=== PATIENT | male | born 1950 | race African-American/Black ===

== ENCOUNTER 2023-08-01 20:34 | Emergency (ER) | payer BC, OTHER ==
[2023-08-01 20:40] VITALS: BP 132/84; PULSE 82; RESP 18; TEMP 98.4; BMI 32.5
[2023-08-01 22:01] LABS: BASO % 0.7 % (0-2.0); EOS % 2.3 % (0-4.5); HEMATOCRIT 43.2 % (35.4-49); LYMPH % 34.7 % (8-40); MCH 28.4 pg (25.7-33.7); MCHC 32.3 g/dl (32.0-35.9); MEAN CELL VOLUME 87.8 fl (80-96); MEAN PLT VOLUME 7.7 fl (7.5-11.1); MONO % 6.9 % (3.8-10.2); NEUT % 55.4 % (42.8-82.8); PLATELET COUNT 315 10^3/uL (134-434); RBC 4.92 M/mm3 (4.00-5.60); RDW 12.8 % (11.9-15.9); WHITE BLOOD COUNT 6.4 K/mm3 (4.0-10.0)
[2023-08-01 22:31] LABS: CALCIUM 9.2 mg/dL (8.5-10.1)
[2023-08-01 22:32] LABS: ALBUMIN 3.8 g/dl (3.4-5.0); BLOOD UREA NITROGEN 14.1 mg/dL (7-18)
[2023-08-01 22:35] LABS: CREATININE 1.2 mg/dL (0.55-1.3)
[2023-08-01 22:37] LABS: BILIRUBIN,TOTAL 0.5 mg/dL (0.2-1)
== END 2023-08-01 23:43 | disposition home or self-care (01) ==
LOC: JER 20:34
DX: R07.89 Other chest pain (principal); G62.9 Polyneuropathy, unspecified
CPT/HCPCS: 36415; 71046-TC-FY; 80053; 84484; 85025; 93005; 93010; 99285-25